=== PATIENT | female | born 1980 | race African-American/Black ===

== ENCOUNTER 2017-01-08 18:34 | Emergency (ER) | payer OTHER ==
[2017-01-08 18:46] VITALS: BP 106/61; PULSE 90; TEMP 98; BMI 44.1
--- NOTE | 2017-01-08 19:23 | PDOC ---
History of Present Illness - General History Source: Patient Exam Limitations: No Limitations - History of Present Illness Initial Comments: 01/08/17 19:47 The patient is a 36 year old female, with a significant past medical history of asthma and scoliosis, who presents to the emergency department with bilateral knee pain and lower extremity swelling since yesterday. She states that the swelling has decreased since yesterday but she still notices a mild amount. She describes her knee pain as ranging from mild to moderate, without radiation or modifying factors. She states that her PMD stated that she might have mild arthritis of the knees in the past. She denies any kind of injuries. The patient denies chest pain, shortness of breath, headache and dizziness. LMP: 12/20/2016 Allergies: Penicillin Past surgical history: None reported Social history: No alcohol, tobacco or drug use reported PMD - Dr. Teresa Pritchett <Bennie Carbajal - Last Filed: 01/08/17 19:47> <Nixon Cameron - Last Filed: 01/08/17 21:05> - General Chief Complaint: Edema Stated Complaint: SWOLLEN LEGS Time Seen by Provider: 01/08/17 19:11 Past History <Bennie Carbajal - Last Filed: 01/08/17 19:47> - Past Medical History Asthma: Yes Cancer: No Cardiac Disorders: No Diabetes: No HTN: No Seizures: No Thyroid Disease: No Other medical history: scoliosis - Reproductive History (#): 8 Para: 5 Therapeutic (s) & number: Yes Spontaneous : 3 - Immunization History Immunization Up to Date: Yes - Psycho/Social/Smoking Cessation Hx Anxiety: No Suicidal Ideation: No Smoking Status: No Smoking History: Never smoked Have you smoked in the past 12 months: No Number of Cigarettes Smoked Daily: 0 Information on smoking cessation initiated: No Hx Alcohol Use: No Drug/Substance Use Hx: No Substance Use Type: None Hx Substance Use Treatment: No <Nixon Cameron - Last Filed: 01/08/17 21:05> - Past Medical History Allergies/Adverse Reactions: Allergies Allergy/AdvReac Type Severity Reaction Status Date / Time Penicillins Allergy Hives Verified 01/08/17 18:42 Review of Systems - Review of Systems Able to Perform ROS?: Yes Comments:: 01/08/17 19:48 CONSTITUTIONAL: No fever, no chills, no fatigue EYES: No visual changes ENT: No ear pain, no sore throat CARDIOVASCULAR: No chest pain, no palpitations RESPIRATORY: No cough, no SOB GI: No abdominal pain, no nausea, no vomiting, no constipation, no diarrhea GENITOURINARY: No dysuria, no frequency, no hematuria EXTREMITIES: (+)Bilateral lower extremity swelling and knee pain. MUSKULOSKELETAL: No backpain, no joint pain, no myalgias SKIN: No rash NEURO: No headache <Bennie Carbajal - Last Filed: 01/08/17 19:47> *Physical Exam - Vital Signs Last Vital Signs Temp Pulse Resp BP Pulse Ox 98 F 90 20 106/61 100 01/08/17 18:43 01/08/17 18:43 01/08/17 18:43 01/08/17 18:43 01/08/17 18:43 - Physical Exam Comments: 01/08/17 19:48 CONSTITUTIONAL: (+)Mordbidly obese. In no apparent distress HEAD: Normocephalic; atraumatic EYES: PERRL; EOM intact ENMT: External appears normal; normal oropharynx NECK: Supple; non-tender; no cervical lymphadenopathy CARD: Normal S1, S2; no murmurs, rubs, or gallops RESP: Normal chest excursion with respiration; breath sounds clear and equal bilaterally; no wheezes, rhonchi, or rales ABD: Soft, non-distended; non-tender; no palpable organomegaly, no palpable hernias SKIN: Warm, dry, no rash NEURO: No focal neurological deficiencies. <Bennie Carbajal - Last Filed: 01/08/17 19:47> - Vital Signs Last Vital Signs Temp Pulse Resp BP Pulse Ox 98 F 90 20 106/61 100 01/08/17 18:43 01/08/17 18:43 01/08/17 18:43 01/08/17 18:43 01/08/17 18:43 <Nixon Cameron - Last Filed: 01/08/17 21:05> Medical Decision Making - Medical Decision Making 01/08/17 21:03 Patient is morbidly obese 36-year-old female who presents with atraumatic bilateral knee and ankle pain as well as foot swelling that has now resolved. In the ER, patient is awake and alert, nontoxic-appearing, afebrile and hemodynamically stable. Physical evaluation reveals no evidence of acute joint inflammation; there is no peripheral rash. Patient is neurovascularly intact distally. I do not suspect infectious or rheumatoid arthritis or gonococcal arthritis or Lyme related arthritis at this time, however, patient will require outpatient follow-up for further evaluation and treatment. Will discharge with NSAIDs. <Nixon Cameron - Last Filed: 01/08/17 21:05> *DC/Admit/Observation/Transfer - Attestations Scribe Attestion: 01/08/17 19:48 Documentation prepared by Bennie Carbajal, acting as medical assistant ob gyn for Nixon Cameron MD <Bennie Carbajal - Last Filed: 01/08/17 19:47> - Attestations Physician Attestion: 01/08/17 21:03 The documentation was prepared by the scribe under my direct supervision. I have reviewed the documentation which correctly represents the findings, medical decision-making and critical action taken by me. <Nixon Cameron - Last Filed: 01/08/17 21:05> Diagnosis at time of Disposition: Arthritis - Discharge Dispostion Disposition: HOME Condition at time of disposition: Stable - Referrals Referrals: Teresa Pritchett [Primary Care Provider] - - Patient Instructions Printed Discharge Instructions: DI for Arthritis
[2017-01-08] MEDS ORDERED: IBUPROFEN 400 MG TABLET (FP) PO ONE ×2 (19:41→20:11)
== END 2017-01-08 21:33 | disposition home or self-care (01) ==
LOC: JER 18:34
DX: M13.862 Other specified arthritis, left knee (principal); M13.861 Other specified arthritis, right knee; E66.01 Morbid (severe) obesity due to excess calories; Z68.41 Body mass index [BMI] 40.0-44.9, adult
CPT/HCPCS: 84703; 99282-25

== ENCOUNTER 2019-02-12 15:22 | Emergency (ER) | payer OTHER | END 2019-02-12 16:15 | disposition home or self-care (01) | LOC: JERFT 15:22 ==

== ENCOUNTER 2019-02-16 11:15 | Emergency (ER) | payer OTHER | END 2019-02-16 12:18 | disposition home or self-care (01) | LOC: JERFT 11:15 ==

== ENCOUNTER 2019-03-19 13:35 | Emergency (ER) | payer OTHER ==
[2019-03-19 13:51] VITALS: BP 131/93; TEMP 98.5; BMI 44.1
[2019-03-19] MEDS ORDERED: NAPROXEN 500 MG TABLET (FP) PO ONE (14:05)
[2019-03-19] MEDS ORDERED: NAPROXEN 500 MG TABLET (FP) ONE (14:08)
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
[2019-03-19 14:18] VITALS: PULSE 91
== END 2019-03-19 15:20 | disposition home or self-care (01) ==
LOC: JERFT 13:35
DX: S86.812A Strain of other muscle(s) and tendon(s) at lower leg level, left leg, initial encounter (principal); W18.39XA Other fall on same level, initial encounter; Y93.01 Activity, walking, marching and hiking; Y92.89 Other specified places as the place of occurrence of the external cause; Y99.8 Other external cause status
CPT/HCPCS: 73560-TC-LT-FY; 99282-25